=== PATIENT | male | born 1950 | race Two or more races ===

== ENCOUNTER 2019-02-26 12:09 | Outpatient (RCR) | payer MEDICARE, SELFPAY | END 2019-02-26 13:57 | disposition home or self-care (01) | LOC: PT.CARL 12:09 | PROVIDERS: Visit Provider Internal Medicine Adolescent Medicine | DX: G20 Parkinson's disease (principal); R53.1 Weakness ==

== ENCOUNTER → 2019-03-26 10:37 | Outpatient (CLI) | payer MEDICARE, SELFPAY ==
[2019-03-26 14:13] LABS: Basophils # 0.1 K/mm3 (0-0.2); Basophils % 0.7 % (0.1-2.0); Eosinophils # 0.1 K/mm3 (0.0-0.4); Hematocrit 38.5 % (42.0-52.0); Hemoglobin 12.5 g/dL (14.1-18.0); Lymphocytes # 1.2 K/mm3 (0.7-4.5); Lymphocytes % 15.6 % (10-50); Mean Corpuscular HGB Conc 32.4 g/dL (31.8-35.4); Mean Corpuscular Hemoglobin 31.1 pg (27.0-31.2); Mean Corpuscular Volume 95.9 fl (80-94); Monocytes # 0.4 K/mm3 (0.1-1.0); Monocytes % 4.9 % (1.7-9.3); Neutrophils # 5.8 K/mm3 (1.8-7.8); Neutrophils % 77.7 % (37.0-80.0); Platelet Count 369 K/mm3 (142-424); Red Blood Count 4.01 M/mm3 (4.60-6.20); Red Cell Distribution Width 14.3 % (11.5-17.5); White Blood Count 7.4 K/mm3 (4.8-10.8)
[2019-03-26 14:20] LABS: Alanine Aminotransferase 11 U/L (12-78); Albumin Level 3.4 gm/dL (3.4-5.0); Albumin/Globulin Ratio 1.1 (1.1-1.8); Alkaline Phosphatase 91 U/L (46-116); Anion Gap 11.3 mEq/L (5-15); Aspartate Amino Transferase 11 U/L (15-37); Bilirubin,Total 0.5 mg/dL (0.2-1.0); Blood Urea Nitrogen 20 mg/dL (7-18); Calcium 8.4 mg/dL (8.5-10.1); Carbon Dioxide 28 mmol/L (21.0-32.0); Chloride 106 mmol/L (98-107); Chol/HDL Ratio 2.7 (1-3.5); Cholesterol 132 mg/dL (140-200); Creatinine,Serum 0.55 mg/dL (0.70-1.30); Estimated Glomerular Filt Rate 148 ml/min (>60); GFR (African American) 179 ML/MIN (>60); Glucose 87 mg/dL (74-106); HDL Cholesterol 49 mg/dL (27-67); LDL Cholesterol 78 mg/dL (0-130); Potassium 4.3 mmoL/L (3.5-5.1); Sodium 141 mmol/L (136-145); Total Protein,Serum 6.4 gm/dL (6.4-8.2); Triglycerides 27 mg/dL (30-200); VLDL Cholesterol 5 mg/dL (0-40)
[2019-03-27 10:23] LABS: Thyroid Stimulating Hormone 5.38 uIU/ml (0.358-3.740)
== END ==
PROVIDERS: Internal Medicine Adolescent Medicine; PCP Nurse Practitioner Family; Visit Provider Nurse Practitioner Family
DX: Z00.00 Encounter for general adult medical examination without abnormal findings (principal); G20 Parkinson's disease; Z79.899 Other long term (current) drug therapy
CPT/HCPCS: 36415; 80053; 80061; 84443; 85025

== ENCOUNTER 2019-07-02 09:17 | Inpatient (IN) ==
[2019-07-02 09:32] LABS: Microscopic, Urine URINE MICROSCOPIC (MICROSCOPIC)
[2019-07-02 09:35] LABS: Appearance,Urine CLEAR (Clear); Bilirubin,Urine Negative (Negative); Blood, Urine 3+ (Negative); Color,Urine YELLOW (Yellow); Glucose,Urine (UA) Negative (Negative); Ketones,Urine 1+ (Negative); Leukocyte Esterase,Urine Negative (Negative); PH,Urine 6.5 (5.0-8.5); Protein,Urine 1+ (Negative); Specific Gravity, Urine 1.025 (1.005-1.030); Urobilinogen,Urine 0.2 EU/dl (0.2)
[2019-07-02 09:36] LABS: Basophils % 0.2 % (0.1-2.0); Hematocrit 41.9 % (42.0-52.0); Hemoglobin 13.6 g/dL (14.1-18.0); Lymphocytes # 1.1 K/mm3 (0.7-4.5); Lymphocytes % 8.5 % (10-50); Mean Corpuscular HGB Conc 32.5 g/dL (31.8-35.4); Mean Corpuscular Volume 90.7 fl (80-94); Mean Platelet Volume 7.4 fl (7.4-10.4); Monocytes # 0.8 K/mm3 (0.1-1.0); Monocytes % 6.2 % (1.7-9.3); Neutrophils # 10.7 K/mm3 (1.8-7.8); Platelet Count 414 K/mm3 (142-424); Red Blood Count 4.62 M/mm3 (4.60-6.20); Red Cell Distribution Width 13.7 % (11.5-17.5); White Blood Count 12.6 K/mm3 (4.8-10.8)
[2019-07-02 09:44] LABS: Bacteria,Urine Trace /lpf; Squamous Epithelial Cell,Urine Occasional #/hpf (0-5)
[2019-07-02 09:50] LABS: Eosinophils % 1 % (0-3); Lymphocytes % 11 % (10-50); Monocytes % 7 % (2-9); Neutrophils % 81 % (42-76); Total Cells Counted 100
[2019-07-02 09:51] LABS: RBC Morphology Normal
[2019-07-02 09:54] LABS: Albumin Level 3.7 gm/dL (3.4-5.0); Alkaline Phosphatase 154 U/L (46-116); Anion Gap 15.5 mEq/L (5-15); Aspartate Amino Transferase 130 U/L (15-37); Bilirubin,Total 1.1 mg/dL (0.2-1.0); Blood Urea Nitrogen 23 mg/dL (7-18); Carbon Dioxide 27 mmol/L (21.0-32.0); Chloride 105 mmol/L (98-107); Globulin 3.7 gm/dl (1.3-3.2); Glucose 112 mg/dL (74-106); Sodium 144 mmol/L (136-145); Total Protein,Serum 7.4 gm/dL (6.4-8.2)
[2019-07-02 09:57] LABS: Creatine Kinase 4615 U/L (39-308)
--- NOTE | 2019-07-02 10:08 | Emergency Department Note ---
ED Disposition Clinical Impression: Rhabdomyolysis Qualifiers: Rhabdomyolysis type: traumatic Encounter type: initial encounter Qualified Code(s): T79.6XXA - Traumatic ischemia of muscle, initial encounter Disposition: Admitted As Inpatient Condition on Discharge: Serious - Critical Care Critical Care Time: No Attestation: On 07/02/19, the high probability of a clinically significant, sudden or life threatening deterioration of the following system(s) required my full and direct attention, intervention and personal management. The time I documented below is in addition to time spent performing reported procedures but includes the following listed in this critical care notation. Medical Decision Making - Terrance Inquiry Pt receiving controlled substance: No Terrance was queried for this patient: No Vital Signs: 07/02/19 09:41 07/02/19 10:15 07/02/19 11:15 Temperature 101.1 F H Temperature Source Rectal Pulse Rate Pulse Rate [Right Radial] 75 77 65 Respiratory Rate 20 Blood Pressure Blood Pressure [Right Arm] 128/71 132/72 142/75 H Blood Pressure Mean [Right Arm] 90 92 97 Blood Pressure Source [Right Arm] Automatic Cuff Automatic Cuff Blood Pressure Position [Right Arm] Supine Supine 02 Sat by Pulse Oximetry 96 97 Oxygen Delivery Method Room Air Room Air 07/02/19 11:45 07/02/19 12:15 07/02/19 12:45 Temperature Temperature Source Pulse Rate Pulse Rate [Right Radial] 74 64 92 H Respiratory Rate Blood Pressure Blood Pressure [Right Arm] 132/79 137/77 144/79 H Blood Pressure Mean [Right Arm] 96 97 100 Blood Pressure Source [Right Arm] Automatic Cuff Automatic Cuff Automatic Cuff Blood Pressure Position [Right Arm] Sitting Sitting Sitting 02 Sat by Pulse Oximetry 99 97 97 Oxygen Delivery Method Room Air Room Air Room Air 07/02/19 13:25 07/02/19 13:47 07/02/19 14:26 Temperature 99.2 F Temperature Source Oral Pulse Rate 69 Pulse Rate [Right Radial] 63 81 Respiratory Rate 18 17 Blood Pressure 140/70 Blood Pressure [Right Arm] 133/68 129/60 Blood Pressure Mean [Right Arm] 89 83 Blood Pressure Source [Right Arm] Automatic Cuff Automatic Cuff Blood Pressure Position [Right Arm] Supine Supine 02 Sat by Pulse Oximetry 97 95 Oxygen Delivery Method Room Air Room Air Room Air 07/02/19 15:00 Temperature Temperature Source Pulse Rate Pulse Rate [Right Radial] Respiratory Rate Blood Pressure Blood Pressure [Right Arm] Blood Pressure Mean [Right Arm] Blood Pressure Source [Right Arm] Blood Pressure Position [Right Arm] 02 Sat by Pulse Oximetry Oxygen Delivery Method Room Air - Lab Data Lab Results 07/02/19 09:18: WBC 12.6 H, RBC 4.62, Hgb 13.6 L, Hct 41.9 L, MCV 90.7, MCH 29.5, MCHC 32.5, RDW 13.7, Plt Count 414, MPV 7.4, Neut % (Auto) 85.0 H, Lymph % (Auto) 8.5 L, [place] % (Auto) 6.2, Eos % (Auto) 0.0 L, Baso % (Auto) 0.2, Neut # (Auto) 10.7 H, Lymph # (Auto) 1.1, [place] # (Auto) 0.8, Eos # (Auto) 0.0, Baso # (Auto) 0.0, Total Counted 100, Neutrophils % (Manual) 81 H, Lymphocytes % (Manual) 11, Monocytes % (Manual) 7, Eosinophils % (Manual) 1, Platelet Estimate Normal, RBC Morphology Normal 07/02/19 09:18: Sodium 144, Potassium 3.5, Chloride 105, Carbon Dioxide 27, Anion Gap 15.5 H, BUN 23 H, Creatinine 1.22, Estimated Creat Clear 42, Estimated GFR 59, Est GFR ( Amer) 71, Glucose 112 H, Calcium 8.0 L, Total Bilirubin 1.1 H, AST 130 H, ALT 72, Alkaline Phosphatase 154 H, Total Creatine Kinase 4615 H*, Troponin I < 0.02, Total Protein 7.4, Albumin 3.7, Globulin 3.7 H, Albumin/Globulin Ratio 1.0 L 07/02/19 09:20: Urine Color Yellow, Urine Appearance Clear, Urine pH 6.5, Ur Specific [place] 1.025, Urine Protein 1+, Urine Glucose (UA) Negative, Urine Ketones 1+, Urine Blood 3+, Urine Nitrate Negative, Urine Bilirubin Negative, Urine Urobilinogen 0.2, Ur Leukocyte Esterase Negative, Urine RBC 5-10, Urine WBC 10-20, Ur Squamous Epith Cells Occasional, Urine Bacteria Trace 07/02/19 09:20: Influenza Type A Ag Negative, Influenza Type B Ag Negative 07/02/19 09:40: Lactate 3.5 H 07/02/19 12:28: Troponin I 0.04 07/02/19 14:12: Lactate 1.3 Result diagrams: 07/02/19 09:18 07/02/19 09:18 Orders (Tests/Meds): ED MEDICATIONS Generic Name Dose Route Start Last Admin Trade Name Ev PRN Reason Stop Dose Admin Acetaminophen 650 mg 07/02/19 15:00 Acetaminophen 325mg Tab PO 08/01/19 14:23 Q4HP PRN As Needed for Fever or Pain Vancomycin HCl 1,000 mg/ 250 mls @ 125 mls/hr 07/03/19 11:00 Sodium Chloride IV 07/17/19 10:59 Q24H SKYLAR Cefepime HCl 2 gm/ Sodium 100 mls @ 200 mls/hr 07/02/19 21:00 Chloride IV 07/16/19 20:59 Q12H SKYLAR Protocol Lactated Ringer's 1,000 mls @ 50 mls/hr 07/02/19 15:00 07/02/19 15:32 Lactated Ringer's 1000 Ml Bag IV 08/01/19 14:29 50 mls/hr .Q20H SKYLAR Administration Metronidazole 500 mg in 100 mls @ 100 mls/hr 07/02/19 18:00 Flagyl 500mg/100ml Ivpb IV 07/16/19 09:59 Q8H SKYLAR Protocol Ondansetron HCl 4 mg 07/02/19 15:00 Zofran 4mg/2ml Vial IV 08/01/19 14:23 Q8HP PRN Nausea Sodium Chloride 10 ml 07/02/19 15:00 Saline Flush 10ml Syringe IV 08/01/19 14:23 NEEDED PRN Maintain IV Site Discontinued Medications Generic Name Dose Route Start Last Admin Trade Name Ev PRN Reason Stop Dose Admin Acetaminophen 650 mg 07/02/19 09:37 07/02/19 09:40 Acetaminophen 650mg Suppository RC 07/02/19 09:38 650 mg ONCE ONE Administration Acetaminophen 650 mg 07/02/19 14:24 Acetaminophen 325mg Tab PO 08/01/19 14:23 Q4HP PRN As Needed for Fever or Pain Sodium Chloride 1,000 mls @ 999 mls/hr 07/02/19 09:45 07/02/19 09:40 Sod Chlor 0.9% 1000ml Bag IV 07/02/19 10:45 999 mls/hr .Q1H1M SKYLAR Administration Cefepime HCl 2 gm/ Sodium 100 mls @ 200 mls/hr 07/02/19 10:00 07/02/19 10:00 Chloride IV 07/16/19 09:59 200 mls/hr Q8H SKYLAR Administration Protocol Metronidazole 500 mg in 100 mls @ 100 mls/hr 07/02/19 10:00 07/02/19 10:57 Flagyl 500mg/100ml Ivpb IV 07/16/19 09:59 100 mls/hr Q8H [facility] Administration Protocol Vancomycin HCl 1,250 mg/ 250 mls @ 125 mls/hr 07/02/19 10:15 07/02/19 10:57 Sodium Chloride IV 07/02/19 12:14 125 mls/hr ONCE ONE Administration Sodium Chloride 1,560 mls @ 780 mls/hr 07/02/19 10:32 07/02/19 09:40 Sod Chlor 0.9% 1000ml Bag 30 ml/kg infuse over 2 hr (1560 ml) 07/02/19 12:31 780 mls/hr IV Administration .Q2H ONE Vancomycin HCl 1,000 mg/ 250 mls @ 125 mls/hr 07/03/19 11:00 Sodium Chloride IV 07/17/19 10:59 Q24H SKYLAR Lactated Ringer's 1,000 mls @ 50 mls/hr 07/02/19 14:30 07/02/19 15:33 Lactated Ringer's 1000 Ml Bag IV 08/01/19 14:29 Not Given .Q20H [facility] Ketorolac Tromethamine 30 mg 07/02/19 09:37 07/02/19 09:40 Toradol 30mg/Ml Vial IV 07/02/19 09:38 30 mg ONCE ONE Administration Miscellaneous 1 each 07/02/19 10:15 07/02/19 10:57 Vancomycin Consult Request * 08/01/19 10:14 1 each CONSULT PH[facility]ACY [facility] Administration Miscellaneous 1 each 07/02/19 15:00 Vancomycin Consult Request * 08/01/19 10:14 CONSULT [facility] Ondansetron HCl 4 mg 07/02/19 14:24 Zofran 4mg/2ml Vial IV 08/01/19 14:23 Q8HP PRN Nausea Sodium Chloride 10 ml 07/02/19 14:24 Saline Flush 10ml Syringe IV 08/01/19 14:23 NEEDED PRN Maintain IV Site ORDERS Category Date Time Status Consult to Case Management [CONS] Routine Cons 07/02/19 14:24 Active Basic Metabolic Panel AMLAB Lab 07/03/19 06:00 Ordered CK [Creatine Kinase] AMLAB Lab 07/03/19 06:00 Ordered Complete Blood Count Auto Diff AMLAB Lab 07/03/19 06:00 Ordered Magnesium AMLAB Lab 07/03/19 06:00 Ordered Phosphorous AMLAB Lab 07/03/19 06:00 Ordered Blood Culture Stat Micro 07/02/19 09:40 Received Urine Culture Stat Micro 07/02/19 09:20 Received Medical Decision Narrative: She presented to the emergency department after being found down at home. Been approximately 12 hours or so since that he wanted last seen him. He likely slipped in the bathroom according to the doctor. He had abrasions to his forehead, left elbow, decubitus ulcers to the left buttocks as well. The abrasion on the forehead and a small avulsion to it but it was nothing that I could repair. X-rays were performed of his injured extremities and were unremarkable. CT scan was performed of his head, C-spine, face, chest, abdomen and pelvis. All of these were unremarkable for any acute injury. Not strongly of urine, and had a mild fever. Concern he can potentially be infected he was given vancomycin, cefepime, and Flagyl intravenously. He was given an IV fluid bolus as well. Urinalysis was unremarkable. Lab work showed a mild rhabdomyolysis with a CK of 5000 his urine was negative however. I am concerned if this patient is to go home but they will fall again he seemed to be very weak and deconditioned. I discussed with Dr. Tripp who will admit the patient for further work-up and care. General Adult HPI - General Chief complaint: Fall Stated complaint: fall Time Seen by Provider: 07/02/19 10:00 Mode of Arrival: EMS Limitations: Physical Limitations Description of Symptoms (Recalled from ER Triage Doc. by RN): pt received to exam 5 via stretcher from home. pt found down in the bathroom this morning by daughter. pt states that last night he got dizzy while going to the bathroom and fell. pt laid in bathroom floor all night long. pt with left arm pain/deformity, left hip skin tear, left flank and left upper extremity skin tears. pt is covered in feces and urine. pt smells of foul urine. - History of Present Illness HPI narrative: Presented to the emergency department being found down. The patient was at home and slipped in the shower. No one has seen him since yesterday. His daughter came home and found him this morning. Patient is alert and oriented at this t suellen. However he is not able to get up at this time. He is complaining of pain to his forehead, left elbow, and left buttocks. - Related Data Home Medications Medication Instructions Recorded Confirmed Carbidopa/Levodopa [Sinemet CR 1 tab PO DAILY 04/14/19 07/02/19 50/200mg tablet] Glutamine [l-Glutamine] 500 mg PO DAILY 07/02/19 07/02/19 Lactobacillus Combo No.10 1 each PO DAILY 07/02/19 07/02/19 [Probiotic] Allergies Allergy/AdvReac Type Severity Reaction Status Date / Time No Known Allergies Allergy Verified 04/14/19 10:20 [facility] History - Hepatitis A Screen Drug use history?: No High risk sexual behaviors?: No History of sexually transmitted infection?: No Currently employed?: No Childcare worker?: No Do you have indoor plumbing?: Yes Do you have electricity?: Yes Attestation statement:: This patient has been screened for Hepatitis A risk factors. Medical History: Denies:: Diabetes Mellitus Type 1, Diabetes Mellitus Type 2 - Social History Smoking Status: Never smoker Alcohol Intake: never Occupational Status: disabled ROS Obtained: Yes All systems reviewed & no additional complaints Physical Exam - General General appearance: alert - Head Head exam: other - Eye Eye exam: Present: normal appearance - ENT ENT exam: Present: normal exam - Neck Neck exam: Present: normal inspection - Chest Chest inspection: Present: normal inspection - Respiratory Respiratory exam: Present: normal lung sounds bilaterally - Cardiovascular Cardiovascular exam: Present: regular rate - Abdominal Exam Abdominal exam: Present: soft - Extremities Exam Extremities exam: Present: tenderness - Neurological Exam Neurological exam: Present: alert, oriented X3 - Skin Skin exam: Present: other
[2019-07-02 10:59] LABS: Alanine Aminotransferase 72 U/L (12-78)
--- NOTE | 2019-07-02 21:17 | History & Physical Report ---
*Admission Date: 07/02/19 *Chief complaint: Fall with immobility/rhabdomyolysis *History of present illness: 68 Year old man recently moved to [place] from [place] to be near biological daughter. Poor health and functional status - lives in [facility] and fell during the night last night. Found down today, covered in urine and stool and dehydrated .... brought to ER. Found to have rhabdomyolyisis and at risk for sepsis. Admitted for IV Fluids and reeval of functional status. Had had [facility] but they have d/cd services for ? reason. [facility] History Medical History: Reports:: Dementia Denies:: Diabetes Mellitus Type 1, Diabetes Mellitus Type 2 *Have you ever received a pneumonia vaccine?: No *Have you received a flu vaccine this season?: No Other Medical History: Reports: Hypothyroidism Comment:: Parkinsons Disease with Lewy Body Dementia - *Social History Educational Level: Completed High School Smoking Status: Never smoker Alcohol Intake: never *Occupational Status:: disabled Housing: apartment *Travel in the last 8 weeks: None Family Hx:: No significant family history Review of Systems - Review of Systems Review of systems:: unable to obtain Meds Home Medications Medication Instructions Recorded Confirmed Type Carbidopa/Levodopa [Sinemet CR 1 tab PO DAILY 04/14/19 07/02/19 History 50/200mg tablet] Glutamine [l-Glutamine] 500 mg PO DAILY 07/02/19 07/02/19 History Lactobacillus Combo No.10 1 each PO DAILY 07/02/19 07/02/19 History [Probiotic] Allergies Allergy/AdvReac Type Severity Reaction Status Date / Time No Known Allergies Allergy Verified 04/14/19 10:20 Exam Vital signs and Labs for Last 24 Hours: Temp Pulse Resp BP Pulse Ox 99.2 F 69 17 140/70 95 07/02/19 14:26 07/02/19 14:26 07/02/19 14:26 07/02/19 14:26 07/02/19 13:47 Laboratory Results - last 24 hr 07/02/19 09:18: WBC 12.6 H, RBC 4.62, Hgb 13.6 L, Hct 41.9 L, MCV 90.7, MCH 29.5, MCHC 32.5, RDW 13.7, Plt Count 414, MPV 7.4, Neut % (Auto) 85.0 H, Lymph % (Auto) 8.5 L, [place] % (Auto) 6.2, Eos % (Auto) 0.0 L, Baso % (Auto) 0.2, Neut # (Auto) 10.7 H, Lymph # (Auto) 1.1, [place] # (Auto) 0.8, Eos # (Auto) 0.0, Baso # (Auto) 0.0, Total Counted 100, Neutrophils % (Manual) 81 H, Lymphocytes % (Manual) 11, Monocytes % (Manual) 7, Eosinophils % (Manual) 1, Platelet Estimate Normal, RBC Morphology Normal 07/02/19 09:18: Sodium 144, Potassium 3.5, Chloride 105, Carbon Dioxide 27, Anion Gap 15.5 H, BUN 23 H, Creatinine 1.22, Estimated Creat Clear 42, Estimated GFR 59, Est GFR ( Amer) 71, Glucose 112 H, Calcium 8.0 L, Total Bilirubin 1.1 H, AST 130 H, ALT 72, Alkaline Phosphatase 154 H, Total Creatine Kinase 4615 H*, Troponin I < 0.02, Total Protein 7.4, Albumin 3.7, Globulin 3.7 H, Albumin/Globulin Ratio 1.0 L 07/02/19 09:20: Urine Color Yellow, Urine Appearance Clear, Urine pH 6.5, Ur Specific [place] 1.025, Urine Protein 1+, Urine Glucose (UA) Negative, Urine Ketones 1+, Urine Blood 3+, Urine Nitrate Negative, Urine Bilirubin Negative, Urine Urobilinogen 0.2, Ur Leukocyte Esterase Negative, Urine RBC 5-10, Urine WBC 10-20, Ur Squamous Epith Cells Occasional, Urine Bacteria Trace 07/02/19 09:20: Influenza Type A Ag Negative, Influenza Type B Ag Negative 07/02/19 09:40: Lactate 3.5 H 07/02/19 12:28: Troponin I 0.04 07/02/19 14:12: Lactate 1.3 07/02/19 15:15: Troponin I 0.04 I & O for Last 24 hours: Intake & Output 06/30/19 07/01/19 07/02/19 07/03/19 11:59 11:59 11:59 11:59 Intake Total 120 / 120 Balance 120 / 120 Weight 115 lb 124 lb 1.6 oz Narrative: Patient sleeping/obtunded Masked facies Dry oral mucoas/no jvd Abrasions on arms, trunk, legs - see RN pics for details RRR no murmurs Ant lungs clear Abd soft Rigid and stiff with kyphosis c/w Parkinsons diagnosis Assessment and Plan (1) Parkinson disease Current visit: Yes Status: Acute Category: Medical Code(s): G20 - Parkinson's disease Multiple co-morbidities... needs PT eval for LTC placement. (2) Lewy body dementia Current visit: Yes Status: Acute Category: Medical Code(s): G31.83 - Dementia with Lewy bodies; F02.80 - Dementia in other diseases classified elsewhere without behavioral disturbance (3) Frequent falls Current visit: Yes Status: Acute Category: Medical Code(s): R29.6 - Repeated falls (4) Rhabdomyolysis Current visit: Yes Status: Acute Qualifiers: Rhabdomyolysis type: traumatic Encounter type: initial encounter Qualified Code(s): T79.6XXA - Traumatic ischemia of muscle, initial encounter Category: Medical Code(s): M62.82 - Rhabdomyolysis ON IVF. Check labs in am. (5) Bilateral cellulitis of lower leg Current visit: No Status: Acute Category: Medical Code(s): L03.116 - Cellulitis of left lower limb; L03.115 - Cellulitis of right lower limb Await blood cultures... back off coverage as able.
--- NOTE | 2019-07-03 07:25 | Pharmacy Consult Notes ---
[facility] [place] Pharmacy VTE Monitoring - Patient Demographics Admission date: 07/02/19 Report Date: 07/03/19 Time: 07:24 Allergies/Adverse Reactions: Patient Allergies No Known Allergies Allergy (Verified 04/14/19 10:20) Height: 1.6 m Weight: 56.291 kg Patient Problems: Current Active Problems Rhabdomyolysis (Acute) Parkinson disease (Acute) Lewy body dementia (Acute) Frequent falls (Acute) - VTE Risk Labs: VTE Related Lab Results Hgb 13.6 g/dL (14.1-18.0) L 07/02/19 09:18 Hct 41.9 % (42.0-52.0) L 07/02/19 09:18 Plt Count 414 K/mm3 (142-424) 07/02/19 09:18 BUN 23 mg/dL (7-18) H 07/02/19 09:18 Creatinine 1.22 mg/dL (0.70-1.30) 07/02/19 09:18 Estimated Creat Clear 42 mL/min (50-200) 07/02/19 09:18 Was VTE Risk Assessment Performed: Yes VTE Score: 2 VTE Risk Level: Very Low Risk - Prophylaxis VTE Prophylaxis Ordered?: Yes Types of VTE Prophylaxis: TEDS Knee High Location of Applied Device: Bilateral Lower Extremeties
[2019-07-03 07:59] LABS: Basophils # 0.1 K/mm3 (0-0.2); Basophils % 0.4 % (0.1-2.0); Eosinophils % 0.1 % (0.1-12.0); Hematocrit 40.7 % (42.0-52.0); Hemoglobin 13.2 g/dL (14.1-18.0); Lymphocytes # 1.1 K/mm3 (0.7-4.5); Lymphocytes % 8.6 % (10-50); Mean Corpuscular HGB Conc 32.3 g/dL (31.8-35.4); Mean Corpuscular Volume 92.2 fl (80-94); Monocytes # 0.8 K/mm3 (0.1-1.0); Monocytes % 6.6 % (1.7-9.3); Neutrophils # 10.5 K/mm3 (1.8-7.8); Neutrophils % 84.3 % (37.0-80.0); Platelet Count 297 K/mm3 (142-424); Red Blood Count 4.42 M/mm3 (4.60-6.20); White Blood Count 12.5 K/mm3 (4.8-10.8)
[2019-07-03 08:20] LABS: Anion Gap 12.7 mEq/L (5-15); Phosphorous 2.6 mg/dL (2.4-4.9)
--- NOTE | 2019-07-03 08:30 | Progress Note ---
Internal Medicine - PN: Subj *Date: 07/03/19 *Time: 09:12 Interval history: Patient stable overnight. Had no acute events. Complains of pain in his left arm, is where he sustained the brunt of injury from his fall. Denies any chest pain, shortness of breath, nausea, vomiting. Maria in place draining darker yellow urine. Tolerating approximately 50% of his trays. Daughter at bedside this morning and updated of plan. Patient hemodynamically stable and afebrile. Exam Vital signs and Labs for Last 24 Hours: Temp Pulse Resp BP Pulse Ox 98.0 F 82 20 119/69 95 07/03/19 04:00 07/03/19 04:00 07/03/19 04:00 07/03/19 04:00 07/03/19 04:00 Laboratory Results - last 24 hr 07/02/19 09:18: WBC 12.6 H, RBC 4.62, Hgb 13.6 L, Hct 41.9 L, MCV 90.7, MCH 29.5, MCHC 32.5, RDW 13.7, Plt Count 414, MPV 7.4, Neut % (Auto) 85.0 H, Lymph % (Auto) 8.5 L, [place] % (Auto) 6.2, Eos % (Auto) 0.0 L, Baso % (Auto) 0.2, Neut # (Auto) 10.7 H, Lymph # (Auto) 1.1, [place] # (Auto) 0.8, Eos # (Auto) 0.0, Baso # (Auto) 0.0, Total Counted 100, Neutrophils % (Manual) 81 H, Lymphocytes % (Manual) 11, Monocytes % (Manual) 7, Eosinophils % (Manual) 1, Platelet Estimate Normal, RBC Morphology Normal 07/02/19 09:18: Sodium 144, Potassium 3.5, Chloride 105, Carbon Dioxide 27, Anion Gap 15.5 H, BUN 23 H, Creatinine 1.22, Estimated Creat Clear 42, Estimated GFR 59, Est GFR ( Amer) 71, Glucose 112 H, Calcium 8.0 L, Total Bilirubin 1.1 H, AST 130 H, ALT 72, Alkaline Phosphatase 154 H, Total Creatine Kinase 4615 H*, Troponin I < 0.02, Total Protein 7.4, Albumin 3.7, Globulin 3.7 H, Albumin/Globulin Ratio 1.0 L 07/02/19 09:20: Urine Color Yellow, Urine Appearance Clear, Urine pH 6.5, Ur Specific [place] 1.025, Urine Protein 1+, Urine Glucose (UA) Negative, Urine Ket ones 1+, Urine Blood 3+, Urine Nitrate Negative, Urine Bilirubin Negative, Urine Urobilinogen 0.2, Ur Leukocyte Esterase Negative, Urine RBC 5-10, Urine WBC 10- 20, Ur Squamous Epith Cells Occasional, Urine Bacteria Trace 07/02/19 09:20: Influenza Type A Ag Negative, Influenza Type B Ag Negative 07/02/19 09:40: Lactate 3.5 H 07/02/19 12:28: Troponin I 0.04 07/02/19 14:12: Lactate 1.3 07/02/19 15:15: Troponin I 0.04 07/03/19 07:16: WBC 12.5 H, RBC 4.42 L, Hgb 13.2 L, Hct 40.7 L, MCV 92.2, MCH 29.8, MCHC 32.3, RDW 14.0, Plt Count 297 D, MPV 8.0, Neut % (Auto) 84.3 H, Lymph % (Auto) 8.6 L, [place] % (Auto) 6.6, Eos % (Auto) 0.1, Baso % (Auto) 0.4, Neut # (Auto) 10.5 H, Lymph # (Auto) 1.1, [place] # (Auto) 0.8, Eos # (Auto) 0.0, Baso # (Auto) 0.1 I & O for Last 24 hours: Intake & Output 06/30/19 07/01/19 07/02/19 07/03/19 23:59 23:59 23:59 23:59 Intake Total 220 / 220 Output Total 750 / 750 Balance 220 / -530 -750 / -750 Weight 56.291 kg 56.29 kg Narrative: No acute distress this morning on exam, alert and oriented to person and place Masked face ease, responds appropriately to questioning, dry mucous membranes however is breathing through his mouth. Abrasions on arms, trunk, legs, and bruise on left forehead- see RN pics for details RRR no murmurs Ant lungs clear Abd soft, nontender, normal bowel sounds Rigid and stiff with kyphosis c/w Parkinsons diagnosis Assessment and Plan (1) Parkinson disease Current visit: Yes Status: Acute Category: Medical Code(s): G20 - Parkinson's disease (2) Lewy body dementia Current visit: Yes Status: Acute Category: Medical Code(s): G31.83 - Dementia with Lewy bodies; F02.80 - Dementia in other diseases classified elsewhere without behavioral disturbance (3) Frequent falls Current visit: Yes Status: Acute Category: Medical Code(s): R29.6 - Repeated falls (4) Rhabdomyolysis Current visit: Yes Status: Acute Qualifiers: Rhabdomyolysis type: traumatic Encounter type: initial encounter Qualified Code(s): T79.6XXA - Traumatic ischemia of muscle, initial encounter Category: Medical Code(s): M62.82 - Rhabdomyolysis (5) Bilateral cellulitis of lower leg Current visit: No Status: Acute Category: Medical Code(s): L03.116 - Cellulitis of left lower limb; L03.115 - Cellulitis of right lower limb (6) UTI (urinary tract infection) Current visit: Yes Status: Acute Category: Medical Code(s): N39.0 - Urinary tract infection, site not specified (7) Hypokalemia Current visit: Yes Status: Acute Category: Medical Code(s): E87.6 - Hypokalemia (8) Hypocalcemia Current visit: Yes Status: Acute Category: Medical Code(s): E83.51 - Hypocalcemia - Assessment and plan all Dx Assessment and Plan for all problems:: Ill appearing 68-year-old gentleman with advanced Parkinson's who sustained a fall at home and developed rhabdomyolysis, concern for UTI, electrolyte abnormalities. Replace electrolytes as needed today. Increase IV fluids to increase urine output as CK has gone up today. Will attempt to minimize kidney injury. Patient continues to need wound management, empiric IV antibiotics, and monitoring of labs until CK begins to trend down. Patient's condition is guarded, prognosis poor. Anticipate placement in assisted at time of discharge for continued wound care, physical therapy, management of his Parkinson's. Additionally we are making adjustments to his Parkinson's meds during admission, will monitor for response and any side effects.
--- NOTE | 2019-07-03 14:29 | Pharmacy Consult Notes ---
- Pharmacy Consult Date: 07/03/19 Time: 14:28 Referring provider: DR. IQBAL Reason for Consult:: VANCOMYCIN DOSING Allergies and ADEs:: Allergies Allergy/AdvReac Type Severity Reaction Status Date / Time No Known Allergies Allergy Verified 04/14/19 10:20 Home Medications:: Home Medications Medication Instructions Recorded Confirmed Type Carbidopa/Levodopa [Sinemet CR 1 tab PO DAILY 04/14/19 07/02/19 History 50/200mg tablet] Glutamine [l-Glutamine] 500 mg PO DAILY 07/02/19 07/02/19 History Lactobacillus Combo No.10 1 each PO DAILY 07/02/19 07/02/19 History [Probiotic] Height: 1.6 m Weight: 56.29 kg Laboratory Results:: Laboratory Results - last 24 hr 07/02/19 14:12: Lactate 1.3 07/02/19 15:15: Troponin I 0.04 07/03/19 07:16: WBC 12.5 H, RBC 4.42 L, Hgb 13.2 L, Hct 40.7 L, MCV 92.2, MCH 29.8, MCHC 32.3, RDW 14.0, Plt Count 297 D, MPV 8.0, Neut % (Auto) 84.3 H, Lymph % (Auto) 8.6 L, [place] % (Auto) 6.6, Eos % (Auto) 0.1, Baso % (Auto) 0.4, Neut # (Auto) 10.5 H, Lymph # (Auto) 1.1, [place] # (Auto) 0.8, Eos # (Auto) 0.0, Baso # (Auto) 0.1 07/03/19 07:16: Sodium 144, Potassium 2.7 L* D, Chloride 110 H, Carbon Dioxide 24, Anion Gap 12.7, BUN 20 H, Creatinine 0.57 L D, Estimated Creat Clear 56, Estimated GFR 142, Est GFR ( Amer) 171 D, Glucose 100, Calcium 7.0 L D, Phosphorus 2.6, Magnesium 2.1, Total Creatine Kinase 7565 H* D Medical History: Reports:: Dementia Denies:: Diabetes Mellitus Type 1, Diabetes Mellitus Type 2 Assessment and Plan (1) Parkinson disease Current visit: Yes Status: Acute Category: Medical Code(s): G20 - Parkinson's disease (2) Lewy body dementia Current visit: Yes Status: Acute Category: Medical Code(s): G31.83 - Dementia with Lewy bodies; F02.80 - Dementia in other diseases classified elsewhere without behavioral disturbance (3) Frequent falls Current visit: Yes Status: Acute Category: Medical Code(s): R29.6 - Repe ated falls (4) Rhabdomyolysis Current visit: Yes Status: Acute Qualifiers: Rhabdomyolysis type: traumatic Encounter type: initial encounter Qualified Code(s): T79.6XXA - Traumatic ischemia of muscle, initial encounter Category: Medical Code(s): M62.82 - Rhabdomyolysis (5) Bilateral cellulitis of lower leg Current visit: No Status: Acute Category: Medical Code(s): L03.116 - Cellulitis of left lower limb; L03.115 - Cellulitis of right lower limb (6) UTI (urinary tract infection) Current visit: Yes Status: Acute Category: Medical Code(s): N39.0 - Urinary tract infection, site not specified (7) Hypokalemia Current visit: Yes Status: Acute Category: Medical Code(s): E87.6 - Hypokalemia (8) Hypocalcemia Current visit: Yes Status: Acute Category: Medical Code(s): E83.51 - Hypocalcemia - Assessment and plan all Dx Assessment and Plan for all problems:: BASED ON PATIENT'S FACTORS, RECOMMEND CONTINUING WITH VANCOMYCIN 1000 MG Q18H. WILL CHECK TROUGH LEVEL PRIOR TO 4TH DOSE. PHARMACY WILL FOLLOW DAILY AND ADJUST APPROPRIATE.
--- NOTE | 2019-07-03 15:31 | Electrocardiograph Report ---
APPROVED REPORT Exam: Resting ECG HR:93 bpm ECG Measurements Heart Rate 93 AXES MD 150 P 58 QRSd 72 QRS -67 QT 392 T-14 QTc 487 <Conclusion> Normal sinus rhythm Left axis deviation late r wave progression Abnormal ECG Electronically signed by : Julian Tripp, 07/03/2019 15:30:40
[2019-07-04 06:33] LABS: Anion Gap 10.4 mEq/L (5-15); Calcium 7.5 mg/dL (8.5-10.1)
--- NOTE | 2019-07-04 16:42 | Progress Note ---
Internal Medicine - PN: Subj *Date: 07/04/19 *Time: 08:20 Interval history: Patient continues to be stable. Recovering from his injury sustained during his fall. At this time remains weak secondary to his progressive Parkinson's. Tolerating titration of medication so far with addition of evening dose. Denies any nausea, vomiting, chest pain, shortness of breath. Requiring assistance to eat his meals. Daughter at bedside and updated of plan today. Today is patient's birthday, he is 69 years old. Still has a catheter in place, will remove Maria today. Walking with assistance of physical therapy but otherwise not independent. Wound care continuing to manage skin tears sustained in his fall. Exam Vital signs and Labs for Last 24 Hours: Temp Pulse Resp BP Pulse Ox 98.9 F 90 18 111/65 94 L 07/04/19 08:00 07/04/19 13:02 07/04/19 08:00 07/04/19 08:00 07/04/19 08:00 Laboratory Results - last 24 hr 07/04/19 06:09: Sodium 140, Potassium 3.4 L D, Chloride 108 H, Carbon Dioxide 25, Anion Gap 10.4, BUN 18, Creatinine 0.52 L, Estimated Creat Clear 57, Estimated GFR 157, Est GFR ( Amer) 190, Glucose 108 H, Calcium 7.5 L, Total Creatine Kinase 4784 H* D 07/04/19 06:09: Magnesium 1.9 I & O for Last 24 hours: Intake & Output 07/01/19 07/02/19 07/03/19 07/04/19 23:59 23:59 23:59 23:59 Intake Total 220 / 220 3742.5 / 3842.5 340 / 340 Output Total 1450 / 1450 Balance 220 / -530 2292.5 / 2392.5 340 / 340 Weight 56.291 kg 56.29 kg 58.173 kg Microbiology Reports for the Last 24 Hours: Microbiology 07/02/19 09:40 Blood Blood Culture - Preliminary NO GROWTH AFTER 48 HOURS 07/02/19 09:40 Blood Blood Culture - Preliminary NO GROWTH AFTER 48 HOURS 07/02/19 09:20 Urine,Catheterized Urine Culture - Final NO GROWTH AFTER 48 HOURS Narrative: No acute distress this morning on exam. In bedside chair. Alert and oriented to person and place. Bitemporal wasting, loss of periorbital fat, masked faces, minimal emotion during interview Abrasions on arms, trunk, legs, and bruise on left forehead- see RN pics for details ; left forearm edematous with extensive ecchymoses RRR no murmurs Ant lungs clear, prominent ribs and collarbones on exam Abd soft, nontender, normal bowel sounds Rigid and stiff with kyphosis c/w Parkinsons diagnosis; cogwheeling in upper extremities. Assessment and Plan (1) Parkinson disease Current visit: Yes Status: Chronic Category: Medical Code(s): G20 - Parkinson's disease Consents disease severity per Alma Delia and Yahr scale, stage IV. Severely disabling disease. Able to stand assisted and walk minimally prior to presentation however has significant incapacity. Uses walker to ambulate. While living independently, this is probably not the most appropriate for this patient. Requires assistance with eating, ambulating extensive distance, getting to the bathroom. While at home prior to admission, was using urinals and not ambulating to the bathroom independently. Gets help with his daily hygiene routine. This complicates his care extensively. (2) Lewy body dementia Current visit: Yes Status: Acute Category: Medical Code(s): G31.83 - Dementia with Lewy bodies; F02.80 - Dementia in other diseases classified elsewhere without behavioral disturbance (3) Frequent falls Current visit: Yes Status: Acute Category: Medical Code(s): R29.6 - Repeated falls (4) Rhabdomyolysis Current visit: Yes Status: Acute Qualifiers: Rhabdomyolysis type: traumatic Encounter type: initial encounter Qualified Code(s): T79.6XXA - Traumatic ischemia of muscle, initial encounter Category: Medical Code(s): M62.82 - Rhabdomyolysis Showing some improvement with continued IV hydration. Starting to trend down. Decreased from mid 7000's yesterday to mid 4000 today. Continue to monitor to establish a trend of improvement with a repeat CK in the morning (5) Bilateral cellulitis of lower leg Current visit: No Status: Acute Category: Medical Code(s): L03.116 - Cellulitis of left lower limb; L03.115 - Cellulitis of right lower limb (6) UTI (urinary tract infection) Current visit: Yes Status: Acute Category: Medical Code(s): N39.0 - Urinary tract infection, site not specified (7) Hypokalemia Current visit: Yes Status: Acute Category: Medical Code(s): E87.6 - Hypokalemia (8) Hypocalcemia Current visit: Yes Status: Acute Category: Medical Code(s): E83.51 - Hypocalcemia - Assessment and plan all Dx Assessment and Plan for all problems:: Severely debilitated 69-year-old gentleman with stage IV Parkinson's necessitating placement for skilled rehab and nursing care. At this time he is receiving wound care for his abrasions and skin tears. Continuing to get physical therapy assistance during the day for mobility. Titrating medications for Parkinson's. Getting assistance from family with eating. Will remove Maria today as his urine culture has returned with no growth. Stop antibiotics at this time. Patient not safe to go home in his current condition. Given severity of debility and overall clinical picture, patient clearly meets acute admission criteria. Clinically his condition is guarded, prognosis poor. Remains full code. We will continue to attempt placement in halfway.
[2019-07-05 08:03] LABS: Anion Gap 9.1 mEq/L (5-15)
--- NOTE | 2019-07-05 08:03 | Progress Note ---
Internal Medicine - PN: Subj *Date: 07/05/19 *Time: 08:01 Interval history: Patient is slightly more alert than he was on admission. Family was concerned about a swollen left arm yesterday evening. We took the bandage off that had been applied because of his abrasions and have done a K pad overnight and elevated the arm and it is much better. He has no complaints this morning of pain. Exam Vital signs and Labs for Last 24 Hours: Temp Pulse Resp BP Pulse Ox 98.4 F 84 16 135/75 96 07/05/19 04:00 07/05/19 04:00 07/05/19 04:00 07/05/19 04:00 07/05/19 04:00 I & O for Last 24 hours: Intake & Output 07/02/19 07/03/19 07/04/19 07/05/19 11:59 11:59 11:59 11:59 Intake Total 560 / 660 3742.5 / 3742.5 5401 / 5401 Output Total 750 / 750 700 / 700 1170 / 1170 Balance -190 / -90 3042.5 / 3042.5 4231 / 4231 Weight 115 lb 124 lb 1.571 oz 128 lb 4 oz 126 lb 9 oz Microbiology Reports for the Last 24 Hours: Microbiology 07/02/19 09:40 Blood Blood Culture - Preliminary NO GROWTH AFTER 48 HOURS 07/02/19 09:40 Blood Blood Culture - Preliminary NO GROWTH AFTER 48 HOURS 07/02/19 09:20 Urine,Catheterized Urine Culture - Final NO GROWTH AFTER 48 HOURS Narrative: Significant debility once again noted. Stage IV/V Parkinson's disease with near total dependence on nursing staff for all ADLs. Pulmonary status slightly improved with better air entry. Heart rate regular. Abdomen is soft, abdomen exam is difficult because of his kyphotic posture and rigidity. Neurologic CN grossly abnormal with cogwheeling, clasp knife rigidity and significantly impaired dexterity and loss of power in all 4 extremities. Left arm is better than yesterday evening. Less swollen. Abrasions are healing albeit very slowly. Assessment and Plan (1) Parkinson disease Current visit: Yes Status: Chronic Category: Medical Code(s): G20 - Parkinson's disease (2) Lewy body dementia Current visit: Yes Status: Acute Category: Medical Code(s): G31.83 - Dementia with Lewy bodies; F02.80 - Dementia in other diseases classified elsewhere without behavioral disturbance (3) Frequent falls Current visit: Yes Status: Acute Category: Medical Code(s): R29.6 - Repeated falls (4) Rhabdomyolysis Current visit: Yes Status: Acute Qualifiers: Rhabdomyolysis type: traumatic Encounter type: initial encounter Qualified Code(s): T79.6XXA - Traumatic ischemia of muscle, initial encounter Category: Medical Code(s): M62.82 - Rhabdomyolysis (5) Bilateral cellulitis of lower leg Current visit: No Status: Acute Category: Medical Code(s): L03.116 - Cellulitis of left lower limb; L03.115 - Cellulitis of right lower limb (6) UTI (urinary tract infection) Current visit: Yes Status: Acute Category: Medical Code(s): N39.0 - Urinary tract infection, site not specified (7) Hypokalemia Current visit: Yes Status: Acute Category: Medical Code(s): E87.6 - Hypo kalemia (8) Hypocalcemia Current visit: Yes Status: Acute Category: Medical Code(s): E83.51 - Hypocalcemia - Assessment and plan all Dx Assessment and Plan for all problems:: Follow electrolyte disturbances tomorrow. Rhabdomyolysis resolving. Patient remains in dire need of skilled care to maximize his functioning and reduce fall risk.
[2019-07-06 07:14] LABS: Basophils % 0.3 % (0.1-2.0); Eosinophils # 0.1 K/mm3 (0.0-0.4); Eosinophils % 0.9 % (0.1-12.0); Hematocrit 34.8 % (42.0-52.0); Hemoglobin 11.4 g/dL (14.1-18.0); Lymphocytes # 1.2 K/mm3 (0.7-4.5); Lymphocytes % 12.8 % (10-50); Mean Corpuscular HGB Conc 32.8 g/dL (31.8-35.4); Monocytes # 0.5 K/mm3 (0.1-1.0); Monocytes % 4.8 % (1.7-9.3); Neutrophils # 7.7 K/mm3 (1.8-7.8); Neutrophils % 81.3 % (37.0-80.0); Platelet Count 264 K/mm3 (142-424); Red Blood Count 3.83 M/mm3 (4.60-6.20); Red Cell Distribution Width 14.1 % (11.5-17.5); White Blood Count 9.5 K/mm3 (4.8-10.8)
[2019-07-06 07:36] LABS: Anion Gap 9.8 mEq/L (5-15); Calcium 7.2 mg/dL (8.5-10.1)
--- NOTE | 2019-07-06 08:45 | Progress Note ---
Internal Medicine - PN: Subj *Date: 07/06/19 *Time: 08:43 Interval history: Patient alert and talkative this morning. When I asked how he was doing he stated "I am still alive" and smiled. Electrolytes from this morning reviewed. Exam Vital signs and Labs for Last 24 Hours: Temp Pulse Resp BP Pulse Ox 97.8 F 83 18 138/74 94 L 07/06/19 07:51 07/06/19 07:51 07/06/19 07:51 07/06/19 07:51 07/06/19 08:00 Laboratory Results - last 24 hr 07/06/19 06:20: WBC 9.5, RBC 3.83 L, Hgb 11.4 L, Hct 34.8 L, MCV 91.0, MCH 29.8, MCHC 32.8, RDW 14.1, Plt Count 264, MPV 8.0, Neut % (Auto) 81.3 H, Lymph % (Auto) 12.8, [place] % (Auto) 4.8, Eos % (Auto) 0.9, Baso % (Auto) 0.3, Neut # (Auto) 7.7, Lymph # (Auto) 1.2, [place] # (Auto) 0.5, Eos # (Auto) 0.1, Baso # (Auto) 0.0 07/06/19 06:20: Sodium 147 H, Potassium 2.8 L*, Chloride 110 H, Carbon Dioxide 30, Anion Gap 9.8, BUN 7 D, Creatinine 0.48 L, Estimated Creat Clear 56, Estimated GFR 172, Est GFR ( Amer) 209 D, Glucose 94, Calcium 7.2 L I & O for Last 24 hours: Intake & Output 07/03/19 07/04/19 07/05/19 07/06/19 11:59 11:59 11:59 11:59 Intake Total 560 / 660 3742.5 / 3742.5 5521 / 5521 5195 / 5195 Output Total 750 / 750 700 / 700 1370 / 1670 550 / 550 Balance -190 / -90 3042.5 / 3042.5 4151 / 3851 4645 / 4645 Weight 124 lb 1.571 oz 128 lb 4 oz 126 lb 9 oz 126 lb 8.725 oz Narrative: No change in his parkinsonism. Severe disease with very limited mobility and is almost no self-care activities able to be done. Cardiopulmonary assessment unchanged. Oropharynx clear, no JVD issues. Neurologic exam markedly abnormal as previously noted. Abdomen soft. Left arm better with less swelling, some yellow sanguinous drainage from the abrasion on the left elbow. Assessment and Plan (1) Parkinson disease Current visit: Yes Status: Chronic Category: Medical Code(s): G20 - Parkinson's disease (2) Lewy body dementia Current visit: Yes Status: Acute Category: Medical Code(s): G31.83 - Dementia with Lewy bodies; F02.80 - Dementia in other diseases classified elsewhere without behavioral disturbance (3) Frequent falls Current visit: Yes Status: Acute Category: Medical Code(s): R29.6 - Repeated falls (4) Rhabdomyolysis Current visit: Yes Status: Acute Qualifiers: Rhabdomyolysis type: traumatic Encounter type: initial encounter Qualified Code(s): T79.6XXA - Traumatic ischemia of muscle, initial encounter Category: Medical Code(s): M62.82 - Rhabdomyolysis (5) Bilateral cellulitis of lower leg Current visit: No Status: Acute Category: Medical Code(s): L03.116 - Cellulitis of left lower limb; L03.115 - Cellulitis of right lower limb (6) UTI (urinary tract infection) Current visit: Yes Status: Acute Category: Medical Code(s): N39.0 - Urinary tract infection, site not specified (7) Hypokalemia Current visit: Yes Status: Acute Category: Medical Code(s): E87.6 - Hypokalemia (8) Hypocalcemia Current visit: Yes Status: Acute Category: Medical Code(s): E83.51 - Hypocalcemia - Assessment and plan all Dx Assessment and Plan for all problems:: Potassium and calcium will be replaced as noted in orders. Follow labs tomorrow. Patient clearly needs long-term care placement. Whether or not he would benefit from skilled care remains to be seen given his significant baseline comorbidity issues. Rhabdomyolysis and kidney function are improving. Treat abrasion on left arm with mupirocin ointment.
[2019-07-07 06:10] LABS: Anion Gap 11.3 mEq/L (5-15); Calcium 7.4 mg/dL (8.5-10.1)
--- NOTE | 2019-07-07 08:43 | Progress Note ---
Internal Medicine - PN: Subj *Date: 07/07/19 *Time: 08:41 Interval history: Patient is about the same. He is alert and responsive. Significantly impaired with his mobility because of his Parkinson's. Spontaneously feeding himself. Long discussion with patient's daughter who is somewhat disappointed about some discussion with the nursing staff yesterday about his quality of life and ongoing goals of care. Exam Vital signs and Labs for Last 24 Hours: Temp Pulse Resp BP Pulse Ox 98.9 F 82 18 139/79 92 L 07/07/19 04:00 07/07/19 04:00 07/07/19 04:00 07/07/19 04:00 07/07/19 04:00 Laboratory Results - last 24 hr 07/07/19 05:30: Sodium 145, Potassium 3.3 L, Chloride 107, Carbon Dioxide 30, Anion Gap 11.3, BUN 8, Creatinine 0.49 L, Estimated Creat Clear 56, Estimated GFR 168, Est GFR ( Amer) 204, Glucose 93, Calcium 7.4 L I & O for Last 24 hours: Intake & Output 07/04/19 07/05/19 07/06/19 07/07/19 11:59 11:59 11:59 11:59 Intake Total 3742.5 / 3742.5 5521 / 5521 5195 / 5195 2160 / 2160 Output Total 700 / 700 1370 / 1670 700 / 700 350 / 350 Balance 3042.5 / 3042.5 4151 / 3851 4495 / 4495 1810 / 1810 Weight 128 lb 4 oz 126 lb 9 oz 126 lb 8.725 oz Narrative: No significant change in exam, significant cogwheeling, rigidity and neurologic dysfunction. Lungs are clear, heart rate regular. Abdomen is soft. Left arm swelling continues to improve. Abrasion also continues to improve. Oropharynx clear. Assessment and Plan (1) Parkinson disease Current visit: Yes Status: Chronic Category: Medical Code(s): G20 - Parkinson's disease (2) Lewy body dementia Current visit: Yes Status: Acute Category: Medical Code(s): G31.83 - Dementia with Lewy bodies; F02.80 - Dementia in other diseases classified elsewhere without behavioral disturbance (3) Frequent falls Current visit: Yes Status: Acute Category: Medical Code(s): R29.6 - R epeated falls (4) Rhabdomyolysis Current visit: Yes Status: Acute Qualifiers: Rhabdomyolysis type: traumatic Encounter type: initial encounter Qualified Code(s): T79.6XXA - Traumatic ischemia of muscle, initial encounter Category: Medical Code(s): M62.82 - Rhabdomyolysis (5) Bilateral cellulitis of lower leg Current visit: No Status: Acute Category: Medical Code(s): L03.116 - Cellulitis of left lower limb; L03.115 - Cellulitis of right lower limb (6) UTI (urinary tract infection) Current visit: Yes Status: Acute Category: Medical Code(s): N39.0 - Urinary tract infection, site not specified (7) Hypokalemia Current visit: Yes Status: Acute Category: Medical Code(s): E87.6 - Hypokalemia (8) Hypocalcemia Current visit: Yes Status: Acute Category: Medical Code(s): E83.51 - Hypocalcemia - Assessment and plan all Dx Assessment and Plan for all problems:: Overall patient is stable and has achieved maximal medical improvement in the hospital setting. Patient would benefit from skilled care senior living transfer, and we will try to get this done today. I had a very long discussion with his daughter about the possibility that insurance would not pay for skilled care given his advanced parkinsonism and in their view this might be somewhat of a futile exercise. Also instructed her that she needed to be ready to make a decision to place him in a facility that could be more of a long-term care environment that could also do some restorative care versus being able to take him home. Our care management folks will continue to work on placement at the appropriate facility.
--- NOTE | 2019-07-08 07:19 | Progress Note ---
Internal Medicine - PN: Subj *Date: 07/08/19 *Time: 07:19 Interval history: no events overnight. pleasant this morning on interview. Awaiting placement Exam Vital signs and Labs for Last 24 Hours: Temp Pulse Resp BP Pulse Ox 97.8 F 79 18 117/71 94 L 07/08/19 04:00 07/08/19 04:00 07/08/19 04:00 07/08/19 04:00 07/08/19 04:00 I & O for Last 24 hours: Intake & Output 07/05/19 07/06/19 07/07/19 07/08/19 23:59 23:59 23:59 23:59 Intake Total 5401 / 5401 3695 / 3695 3960 / 3960 Output Total 950 / 950 500 / 500 150 / 150 Balance 4451 / 4451 3195 / 3195 3810 / 3810 Weight 57.408 kg 57.4 kg 57.4 kg 59.506 kg Microbiology Reports for the Last 24 Hours: Microbiology 07/02/19 09:40 Blood Blood Culture - Final NO GROWTH AFTER 5 DAYS 07/02/19 09:40 Blood Blood Culture - Final NO GROWTH AFTER 5 DAYS Assessment and Plan (1) Parkinson disease Current visit: Yes Status: Chronic Category: Medical Code(s): G20 - Parkinson's disease (2) Lewy body dementia Current visit: Yes Status: Acute Category: Medical Code(s): G31.83 - Dementia with Lewy bodies; F02.80 - Dementia in other diseases classified elsewhere without behavioral disturbance (3) Frequent falls Current visit: Yes Status: Acute Category: Medical Code(s): R29.6 - Repeated falls (4) Rhabdomyolysis Current visit: Yes Status: Acute Qualifiers: Rhabdomyolysis type: traumatic Encounter type: initial encounter Qualified Code(s): T79.6XXA - Traumatic ischemia of muscle, initial encounter Category: Medical Code(s): M62.82 - Rhabdomyolysis (5) Bilateral cellulitis of lower leg Current visit: No Status: Acute Category: Medical Code(s): L03.116 - Cellulitis of left lower limb; L03.115 - Cellulitis of right lower limb (6) UTI (urinary tract infection) Current visit: Yes Status: Acute Category: Medical Code(s): N39.0 - Urinary tract infection, site not specified (7) Hypokalemia Current visit: Yes Status: Acute Category: Medical Code(s): E87.6 - Hypokalemia (8) Hypocalcemia Current visit: Yes Status: Acute Category: Medical Code(s): E83.51 - Hypocalcemia
--- NOTE | 2019-07-08 15:58 | Discharge Summary ---
General - General Admission date:: 07/02/19 Discharge date: 07/08/19 HPI HPI: 68 Year old man recently moved to [place] from [place] to be near biological daughter. Poor health and functional status - lives in senior apts and fell during the night last night. Found down today, covered in urine and stool and dehydrated .... brought to ER. Found to have rhabdomyolyisis and at risk for sepsis. Admitted for IV Fluids and reeval of functional status. Had had [facility] but they have d/cd services for ? reason. Hospital Course Hospital Course: 69-year-old gentleman with Parkinson's who fell at home sustaining rhabdomyolysis. Parkinson's has progressed in severity making it difficult for him to live independently putting him at risk for falls and injury. During hospitalization, treated for UTI and lower extremity cellulitis. Significant improvement in symptoms. Will discontinue antibiotics at time of discharge. Has remained hemodynamically stable. Improvement electrolytes with fluid resuscitation and dietary adjustment. Rhabdomyolysis resolving with IV fluid resuscitation. Tolerating regular diet. Patient full code. Additionally titrated Sinemet during hospitalization, needs further titration in the outpatient setting under close supervision to assess for improvement in symptoms. Will benefit from skilled care and continued therapy with goal of hopefully getting back to a level of independence for which she can go back home. Stable for discharge to assisted. Objective Vital signs: Temp Pulse Resp BP Pulse Ox 97.9 F 92 H 18 131/78 95 07/08/19 07:45 07/08/19 07:45 07/08/19 07:45 07/08/19 07:45 07/08/19 07:45 Narrative: No acute distress this morning on exam. In bedside chair. Alert and oriented to person and place. Bitemporal wasting, loss of periorbital fat, masked faces, minimal emotion during interview Abrasions on arms, trunk, legs, and bruise on left forehead- see RN pics for details ; left forearm edematous with extensive ecchymoses RRR no murmurs Ant lungs clear, prominent ribs and collarbones on exam Abd soft, nontender, normal bowel sounds Rigid and stiff with kyphosis c/w Parkinsons diagnosis; cogwheeling in upper extremities. DS: Diagnosis - Discharge Diagnosis (1) Parkinson disease Status: Chronic (2) Lewy body dementia Status: Chronic (3) Frequent falls Status: Acute (4) Rhabdomyolysis Status: Resolved (5) Bilateral cellulitis of lower leg Status: Resolved (6) UTI (urinary tract infection) Status: Resolved (7) Hypokalemia Status: Acute (8) Hypocalcemia Status: Acute Discharge Plan - Patient Discharge Instructions ACTIVITY: Up with assistance DIET: continue same diet Patient Instructions: Rhabdomyolysis, DI for Urinary Tract Infection (UTI), DI for Hypokalemia, How to Prevent Falls, DI for Rhabdomyolysis - Follow up Plan Disposition: [facility] Home Medications: Home Medications Medication Instructions Recorded Confirmed Type Lactobacillus Combo No.10 1 each PO DAILY 07/02/19 07/02/19 History [Probiotic] Carbidopa/Levodopa [Sinemet CR 1 tab PO BID 30 Days #60 tab 07/08/19 Rx 50/200mg tablet] Glutamine [l-Glutamine] 500 mg PO DAILY 30 Days #30 cap 07/08/19 Rx Mupirocin [Bactroban 2% Ointment 0.25 gm TP TID 10 Days #1 tube 07/08/19 Rx 22gm tube] Prescriptions/Medication Reconciliation: New Mupirocin [Bactroban 2% Ointment 22gm tube] 0.25 gm TP TID 10 Days #1 tube Continued Lactobacillus Combo No.10 [Probiotic] 1 each PO DAILY Glutamine [l-Glutamine] 500 mg PO DAILY 30 Days #30 cap Changed Carbidopa/Levodopa [Sinemet CR 50/200mg tablet] 1 tab PO BID 30 Days #60 tab - Problem Reconciliation Problems Reviewed?: Yes
== END 2019-07-08 16:57 | DRG 558 ==
LOC: ER 09:17 → 2ND 13:56
PROVIDERS: ADMIT Internal Medicine Adolescent Medicine; ATTEND Internal Medicine Adolescent Medicine
CPT/HCPCS: 36415; 70450; 70486; 71010; 71045; 71275; 72125; 73060; 73090; 73120; 73502; 74177; 80048; 80053; 81001; 82550; 83605; 83735; 84100; 84484; 85007; 85025; 87040; 87086; 87275; 87276; 93005; 96365; 96366; 96367; 96375; 97110; 97161; 97166; 97530; 97535; 99285; J3370